=== PATIENT | female | born 1980 | race Caucasian/White ===

== ENCOUNTER 2023-05-18 07:16 | Day surgery (SDC) | payer OTHER ==
[~2023-05-18] VITALS: Ht 157.5 cm; Wt 136.3 kg
[~2023-05-18 07:16] MED LIST: SODIUM CHLORIDE 0.9% 1,000 ML ONE
[2023-05-18] MEDS ORDERED: SODIUM CHLORIDE 0.9% 1,000 ML IV ONE (08:00)
[2023-05-18] MEDS ORDERED: FAMO20 PO (09:47)
[2023-05-18] MEDS ORDERED: CHOL500013 PO (09:47)
[2023-05-18] MEDS ORDERED: OXYGEN THERAPY IH SCH (11:00)
[2023-05-18] MEDS ORDERED: PROPOFOL 1% 20 ML VIAL IVP ONE (12:00)
[2023-05-18] MEDS ORDERED: LIDOCAINE/PF 2% 5 ML VIAL IM ONE (12:00)
== END 2023-05-18 11:35 | disposition home or self-care (01) ==
LOC: SURGERY 07:16
PROVIDERS: ATTEND Specialist
DX: K21.00 Gastro-esophageal reflux disease with esophagitis, without bleeding (principal); K44.9 Diaphragmatic hernia without obstruction or gangrene; K22.10 Ulcer of esophagus without bleeding; E66.9 Obesity, unspecified; K21.9 Gastro-esophageal reflux disease without esophagitis; Z87.442 Personal history of urinary calculi; Z98.890 Other specified postprocedural states
CPT/HCPCS: 43239; 88342; 84703; 88305; 88312; 88313; C1769; J2704; J3490; J7030